=== PATIENT | male | born 1935 | race Caucasian/White ===

== ENCOUNTER 2020-06-16 14:28 | Emergency (ER) | payer OTHER, MEDICARE, SELFPAY ==
--- NOTE | ~2020-06-16 | XR_ITS ---
EXAMINATION: XR RIBS, LEFT CLINICAL INFORMATION: Status post fall with left rib pain COMPARISON: Chest radiograph 09/24/2016 TECHNIQUE: 3 views of the left ribs were obtained. 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 Lungs are clear. No consolidation, pneumothorax, or pleural effusion. The cardiomediastinal silhouette and pulmonary vasculature are normal. Osseous structures are unremarkable. Ribs are intact. No fractures are identified. XR/XR ribs LT min 3V w CXR1V IMPRESSION: Unremarkable examination.
--- NOTE | ~2020-06-16 | CT_ITS ---
EXAMINATION: CT HEAD WITHOUT CONTRAST CLINICAL INFORMATION: Fall COMPARISON: None. TECHNIQUE: Contiguous axial imaging was performed from the skull base to vertex without intravenous administration of contrast. Coronal and sagittal reformatted images are performed at the CT scanner. [This CT examination was performed using dose optimization techniques as appropriate, variously including the following: *Automated exposure control *Adjustment of mA and/or kV according to patient size (this includes techniques or standardized protocols for targeted exams where dose is matched to indication/reason for exam; i.e. extremities or head) *Use of iterative reconstruction technique] DLP: 785 mGy-cm. FINDINGS: There is a small scalp hematoma the left frontal region. There is no skull fracture. No acute osseous abnormality. There is no evidence of acute intracranial hemorrhage or territorial infarction. No abnormal mass-effect or midline shift is seen. Michael to white matter differentiation is well preserved. No extra-axial fluid collections are identified. There is age-appropriate atrophy with prominence of the ventricles and the sulci and hypodensity of the periventricular white matter due to chronic small vessel ischemic disease. There are vascular calcifications of the internal carotid arteries bilaterally. The mastoid air cells and visualized portions of the paranasal sinuses are well-aerated. CT/CT head/brain wo con IMPRESSION: No acute intracranial pathology.
[2020-06-16 16:54] LABS: Glucose, Whole Blood 179 mg/dL (60-115)
[2020-06-16 16:55] VITALS: BP 162/72; PULSE 72; RESP 18; TEMP 36.4; O2SAT 98
[2020-06-16 17:00] VITALS: BP 160/83; PULSE 74; RESP 19; TEMP 36.9; O2SAT 97; BMI 25.3
--- NOTE | 2020-06-16 17:14 | ED.HEATRA ---
HPI - Head Injury General Chief complaint: Fall Stated complaint: walking fell and hit face Time Seen by Provider: 06/16/20 16:57 Source: patient Mode of arrival: ambulatory Limitations: no limitations History of Present Illness HPI Narrative: Patient otherwise in stable health was walking outside slipped on the ice fell forward hitting his forehead to the ground no loss of consciousness small facial abrasion on the left side of forehead and nose also complaining of pain in the left ribs denies any shortness of breath no abdominal pain no hip pain ambulatory in the ER Complaint: head injury Onset (ago): minute(s) Mechanism of Injury: fall Place: outdoors Loss of Consciousness: no Location of injury: frontal Severity: mild Related Data Allergies Allergy/AdvReac Type Severity Reaction Status Date / Time No Known Allergies Allergy Unverified 01/15/20 15:38 [No Known Allergies*] Review of Systems Review of Systems: Constitutional : No Weight loss, No Fever, No Chills ENT/Mouth : No sore throat, No Rhinorrhea Eyes: No Eye Pain, No Swelling Cardiovascular : No Chest Pain, no palpitations Respiratory : No Cough, No Sputum, no shortness of breath Gastrointestinal : no Nausea, No Vomiting, No Diarrhea, No abdominal Pain, no black stools Genitourinary : No Dysuria, No Urinary Frequency Musculoskeletal : No joint pain, No Myalgias, No Joint Swelling Skin : No Skin Lesions, No rash Neuro : No Weakness, No Numbness, No Dizziness, No Headache Psych : No Anxiety/Panic, No Depression Heme/Lymph: No Bruising, No Lymphadenopathy Endocrine : No Polyuria, No Polydipsia All other systems reviewed and are negative [facility] Social History Social History Alcohol intake: never Smoking Status: Former smoker Smoked in Last 30 Days: No Use of substances other than those prescribed or required for medical reasons: No Advance Directives: No Advance Directives Information Provided: No Physical Exam Vital Signs: Vital Signs: Last Vital Signs Temp 98.5 F 06/16/20 17:00 Pulse 74 06/16/20 17:00 Resp 19 06/16/20 17:00 BP 160/83 H 06/16/20 17:00 Pulse Ox 97 06/16/20 17:00 Body Mass Index 25.3 Const: General: healthy appearing, comfortable, no acute distress and well developed Orientation/consciousness: patient oriented x3 Limitations: no limitations HENMT: Head: Yes No palpable skull fracture present and Yes normocephalic Head images: 1. Small hematoma 2. Superficial laceration 1 cm left eyebrow with dried blood 3. Superficial abrasion on the nose Ears: hearing grossly normal bilaterally General nose exam: Normal nares present Face and sinus: Yes sinuses nontender Mouth: Normal oral and palatal mucosa present Eyes: General: appearance normal, both eyes and all related structures Neck: Neck: Yes normal visual inspection, Yes full ROM, No midline deformity and No tender Chest: Chest palpation & inspection: normal inspection of the chest Chest/axillae images: 1. Minor has diffuse tenderness left mid ribs Resp: Effort & Inspection: normal respiratory effort Auscultation: clear to auscultation bilaterally, no crackles, no rales and no rhonchi Cardio: Palpation: normal PMI Rate: regular rate Rhythm: regular rhythm Heart sounds: S1 normal heart sound present and S2 normal heart sound present Peripheral pulses: Peripheral pulses 2+ throughout GI: Inspection: Yes normal to inspection Palpation (GI): Soft to palpation and nontender Auscultation: normal bowel sounds Back/Spine/Pelvis: Cervical Spine: normal cervical lordosis, No cervical muscular tenderness, No pain with cervical ROM and No Cervical spine tenderness Thoracic/Lumbar Spine: thoracic and lumbar spine normal to inspection, No thoracic spinal tenderness and No lumbar spinal tenderness Skin: General skin exam: no rashes or lesions noted Neuro: General: patient oriented x3, moves all extremities and no focal motor deficits Extrem: General: Yes normal to inspection, Yes full ROM and Yes normal gait Procedures Laceration Laceration 1: Site: face (Left eyebrow) Side (If applicable): left Size (cm): 1 Description: linear Depth: simple, single layer Skin layer closed with: other (Dermabond) MDM - Head Injury MDM Narrative Medical decision making narrative: Patient status post mechanical fall with superficial laceration left eyebrow CT scan head is negative left rib x-ray also negative for fracture will discharge patient home Lab Data Labs: Lab Results 06/16/20 Range/Units 16:42 POC Glucose 179 H (60-115) mg/dL Discharge Plan Discharge Clinical Impression: Closed head injury Qualifiers: Encounter type: initial encounter Qualified Code(s): S09.90XA - Unspecified injury of head, initial encounter Laceration of left eyebrow Qualifiers: Encounter type: initial encounter Qualified Code(s): S01.112A - Laceration without foreign body of left eyelid and periocular area, initial encounter Patient Disposition: Home, Self-Care Instructions: Laceration (ED), Head Injury (ED) Additional Instructions: Local care as advised Tylenol for pain report to ER if increased pain/nausea/vomiting/seizure
== END 2020-06-16 18:34 | disposition home or self-care (01) ==
PROVIDERS: Emergency Provider Internal Medicine; PCP Internal Medicine
DX: S01.112A Laceration without foreign body of left eyelid and periocular area, initial encounter (principal); S09.90XA Unspecified injury of head, initial encounter; H57.12 Ocular pain, left eye; W00.0XXA Fall on same level due to ice and snow, initial encounter; Y93.01 Activity, walking, marching and hiking; Y92.9 Unspecified place or not applicable; Y99.9 Unspecified external cause status; Z87.891 Personal history of nicotine dependence
CPT/HCPCS: 12011; 70450; 71101; 82947; 99284

== ENCOUNTER 2021-11-18 08:00 | Outpatient (RCR) | payer MEDICARE, OTHER, SELFPAY ==
[2021-10-14 09:06] VITALS: BP 130/65; PULSE 62; O2SAT 97
== END 2021-11-22 08:11 | disposition home or self-care (01) ==
LOC: HO.PT 08:00
PROVIDERS: PCP Internal Medicine; Visit Provider Internal Medicine
DX: M54.50 Low back pain, unspecified (principal)
CPT/HCPCS: 97110; 97140; 97162; 97530

== ENCOUNTER 2022-12-12 11:00 | Outpatient (RCR) | payer MEDICARE, OTHER, SELFPAY | END 2022-12-12 13:11 | disposition home or self-care (01) | LOC: HO.PT 11:00 | PROVIDERS: Visit Provider Internal Medicine | DX: M54.42 Lumbago with sciatica, left side (principal) | CPT/HCPCS: 97012; 97110; 97140; 97162 ==